=== PATIENT | female | born 1975 | race Caucasian/White ===

== ENCOUNTER 2022-04-20 08:50 | Day surgery (SDC) | payer MEDICAID ==
[~2022-04-20] VITALS: Ht 170.2 cm; Wt 228.2 kg
[~2022-04-20 08:50] MED LIST: ATOR20TA PO; CARV6.253 PO; CLOP75TA15 PO; ISOS10TA8 PO
[2022-04-20 09:01] VITALS: BP 144/81
[2022-04-20] MEDS ORDERED: ISOS30TA10 PO (09:09)
[2022-04-20] MEDS ORDERED: CLOP75TA33 PO (09:10)
[2022-04-20] MEDS ORDERED: CARV6.253 PO (09:10)
[2022-04-20] MEDS ORDERED: ASPI-611 PO (09:11)
[2022-04-20] MEDS ORDERED: MIDAZolam 1 MG/ML 5ML VIAL ONE (10:27)
[2022-04-20] MEDS ORDERED: FENTANYL CITRATE/PF 50 MCG/1 ML VIAL ONE (10:27)
[2022-04-20] MEDS ORDERED: diphenhydrAMINE 50 mg/ml inj ONE (10:27)
[2022-04-20] MEDS ORDERED: LIDOcaine Viscous 15ml cup ONE (10:28)
[2022-04-20 11:05] VITALS: BP 143/78
[2022-04-20 11:15] VITALS: BP 127/79
[2022-04-20 11:25] VITALS: BP 131/78
[2022-04-20 11:35] VITALS: BP 143/78
== END 2022-04-20 11:45 | disposition home or self-care (01) ==
LOC: GI LAB 08:50
PROVIDERS: ATTEND Internal Medicine Gastroenterology
DX: R19.5 Other fecal abnormalities (principal); K21.00 Gastro-esophageal reflux disease with esophagitis, without bleeding; K31.7 Polyp of stomach and duodenum; K29.70 Gastritis, unspecified, without bleeding; K22.10 Ulcer of esophagus without bleeding
CPT/HCPCS: 43239; 45378; 99152; J2250; J3010; J7030; Z7512; 99153; A4620; J1200

== ENCOUNTER 2022-11-11 10:48 | Outpatient (CLI) | payer MEDICAID ==
[~2022-11-11 10:48] MED LIST changes: +ASPI-611 PO; -ATOR20TA PO; -CLOP75TA15 PO; +CLOP75TA33 PO; -ISOS10TA8 PO; +ISOS30TA10 PO
== END 2022-11-11 23:59 | disposition home or self-care (01) ==
LOC: RAD 10:48
PROVIDERS: ATTEND Registered Nurse Medical-Surgical
DX: S80.12XD Contusion of left lower leg, subsequent encounter (principal); K42.9 Umbilical hernia without obstruction or gangrene; X58.XXXD Exposure to other specified factors, subsequent encounter
CPT/HCPCS: 76882; 93971

== ENCOUNTER 2023-10-07 20:08 | Inpatient (IN) | payer MEDICAID ==
[~2023-10-07] VITALS: Ht 170.2 cm; Wt 236.4 kg
[2023-10-07 20:53] LABS: BASOPHILS # (AUTO) 0.1 X10'3 (0-0.2); BASOPHILS % (AUTO) 0.5 % (0-1); EOSINOPHILS # (AUTO) 0.1 X10'3 (0-0.9); EOSINOPHILS % (AUTO) 1.3 % (0-6); HEMATOCRIT 44.5 % (35.0-45.0); HEMOGLOBIN 14.9 g/dl (12.0-16.0); LYMPHOCYTES % (AUTO) 27.4 % (21-51); MEAN CORPUSCULAR HEMOGLOBIN 29.7 PG (27.0-31.0); MEAN CORPUSCULAR HGB CONC 33.5 g/dL (33.0-36.5); MEAN CORPUSCULAR VOLUME 88.6 FL (78-98); MEAN PLATELET VOLUME 8.2 FL (7.4-10.4); MONOCYTES # (AUTO) 0.6 X10'3 (0-0.9); MONOCYTES % (AUTO) 5.6 % (2-12); NEUTROPHILS # (AUTO) 7.2 X10'3 (1.8-7.7); NEUTROPHILS % (AUTO) 65.2 % (42-75); PLATELET COUNT 303 X10'3 (140-440); RED BLOOD COUNT 5.03 X10'6 (4.20-5.60); RED CELL DISTRIBUTION WIDTH 14.6 % (11.5-14.5)
[2023-10-07 20:54] LABS: ALANINE AMINOTRANSFERASE 20 U/L (12-78); ALBUMIN 3.6 G/DL (3.4-5.0); ALKALINE PHOSPHATASE 44 IU/L (46-116); ANION GAP 10 (8-16); ASPARTATE AMINO TRANSFERASE 11 U/L (10-37); BILIRUBIN,TOTAL 0.5 MG/DL (0.1-1.0); BLOOD UREA NITROGEN 16 MG/DL (7-18); BUN/CREATININE RATIO 22.9 (10.0-20.0); CALCIUM 8.9 MG/DL (8.5-10.1); CHLORIDE 104 MMOL/L (99-107); GLUCOSE 109 MG/DL (70-104); LIPASE 32 U/L (16-77); POTASSIUM 3.9 MMOL/L (3.5-5.1); SODIUM 135 MMOL/L (135-145); TOTAL CARBON DIOXIDE 20.8 MMOL/L (24-32); TOTAL PROTEIN 7.1 G/DL (6.4-8.2); eCRCL 95 ML/MIN; eGFR 89 ML/MIN
[2023-10-07] MEDS ORDERED: iohexol 350MG/ML 100ml bottle IV ONE (21:25)
[2023-10-07 22:02] LABS: PROTHROMBIN TIME 10.9 SECONDS (9.0-12.0)
[2023-10-07] MEDS: ondansetron/PF 4mg/2ml inj IV ONE (22:08)
[2023-10-07] MEDS: pantoprazole 40 MG vial IV ONE (22:08)
[2023-10-07] MEDS: normal saline 1000ML IV soln IVB ONE (22:09)
[2023-10-07] MEDS: fentaNYL/PF 50MCG/1 ML 2ML syringe IV ONE (22:09)
[2023-10-07 22:10] LABS: MAGNESIUM 1.8 MG/DL (1.5-2.4)
[2023-10-07] MEDS ORDERED: ondansetron 4mg rapidly disintigrating tab PO PRN (23:35)
[2023-10-07] MEDS ORDERED: potassium Cl 20 mEq SR tablet PO PRN ×2 (23:35)
[2023-10-07] MEDS ORDERED: magnesium Cl slow-release 64mg tablet PO PRN (23:35)
[2023-10-07] MEDS ORDERED: potassium Cl 40MEQ/1/2NS 520ml 520 ML IV PRN (23:35)
[2023-10-07] MEDS ORDERED: magnesium 2GM in 50ml NS 50 ML IV PRN (23:35)
[2023-10-07] MEDS ORDERED: acetaminophen 325mg tablet PO PRN (23:35)
[2023-10-07] MEDS ORDERED: magnesium 4gm in 100ml NS 100 ML IV PRN (23:35)
[2023-10-07] MEDS: LIDOcaine 2% Viscous 15ml cup MM ONE (23:49)
[2023-10-08] MEDS: normal saline 1000ml 1,000 ML IV SCH (00:09)
[2023-10-08] MEDS: morphine 2 MG/ML inj. syringe IV PRN ×2 (00:25→08:12)
[2023-10-08 00:31] LABS: BILIRUBIN,URINE NEGATIVE (Neg); CLARITY,URINE CLOUDY (Clear); COLOR,URINE STRAW (Yellow); GLUCOSE, URINE NEGATIVE (Neg); KETONES,URINE NEGATIVE (Neg); LEUKOCYTE ESTERASE ,URINE SMALL (Neg); NITRITES, URINE POSITIVE (Neg); OCCULT BLOOD,URINE NEGATIVE (Neg); PH,URINE 5.5 (4.8-8.0); PROTEIN,URINE NEGATIVE (Neg); UROBILINOGEN,URINE 0.2 E.U/dL (0.2-1.0)
[2023-10-08 00:32] LABS: URINE HCG NEGATIVE (NEG)
[2023-10-08 00:38] LABS: UA COLLECTION TYPE CLN CATCH MIDSTREAM
[2023-10-08 00:40] LABS: SQUAMOUS EPITHELIAL CELL,UR MANY /LPF (FEW)
[2023-10-08 00:42] LABS: BACTERIA,URINE 4+ /HPF (Neg); RBC,URINE 0-2 /HPF (0-2); WBC,URINE 50-100 /HPF (0-4)
[2023-10-08] MEDS: CefTRIAXone/D5W-Rocephin 1gm 50 ML IV SCH (02:17)
[2023-10-08 04:00] LABS: BASOPHILS # (AUTO) 0.1 X10'3 (0-0.2); BASOPHILS % (AUTO) 0.6 % (0-1); EOSINOPHILS # (AUTO) 0.1 X10'3 (0-0.9); EOSINOPHILS % (AUTO) 1.4 % (0-6); HEMATOCRIT 43.5 % (35.0-45.0); HEMOGLOBIN 14.5 g/dl (12.0-16.0); LYMPHOCYTES # (AUTO) 2.9 X10'3 (1.1-4.8); LYMPHOCYTES % (AUTO) 28.5 % (21-51); MEAN CORPUSCULAR HEMOGLOBIN 29.5 PG (27.0-31.0); MEAN CORPUSCULAR HGB CONC 33.2 g/dL (33.0-36.5); MEAN CORPUSCULAR VOLUME 88.8 FL (78-98); MEAN PLATELET VOLUME 8.1 FL (7.4-10.4); MONOCYTES # (AUTO) 0.7 X10'3 (0-0.9); MONOCYTES % (AUTO) 6.4 % (2-12); NEUTROPHILS # (AUTO) 6.5 X10'3 (1.8-7.7); NEUTROPHILS % (AUTO) 63.1 % (42-75); PLATELET COUNT 281 X10'3 (140-440); RED CELL DISTRIBUTION WIDTH 14.6 % (11.5-14.5); WHITE BLOOD COUNT 10.3 X10'3 (4.5-11.0)
[2023-10-08 04:08] LABS: ALBUMIN 3.5 G/DL (3.4-5.0); ANION GAP 8 (8-16); BLOOD UREA NITROGEN 13 MG/DL (7-18); BUN/CREATININE RATIO 18.8 (10.0-20.0); CALCIUM 8.9 MG/DL (8.5-10.1); CHLORIDE 103 MMOL/L (99-107); CREATININE 0.69 MG/DL (0.40-0.90); GLUCOSE 105 MG/DL (70-104); POTASSIUM 3.9 MMOL/L (3.5-5.1); SODIUM 135 MMOL/L (135-145); eCRCL 96 ML/MIN; eGFR 90 ML/MIN
[2023-10-08] MEDS ORDERED: MEDR5TAB4 PO (07:05)
[2023-10-08] MEDS ORDERED: METF-1203 PO (07:05)
[2023-10-08 07:36] VITALS: BP 151/78; PULSE 78; RESP 17; TEMP 96.9; O2SAT 93
[2023-10-08] MEDS: K and/or MAG REPLACEMENT MC SCH (08:00)
[2023-10-08] MEDS: enoxaparin 40mg/0.4ml syringe SUBCUT SCH (08:14)
[2023-10-08] MEDS: metroNIDAZOLE-Flagyl 500mg/NS 100 ML IV SCH (08:15)
[2023-10-08 10:00] VITALS: BP 151/80; PULSE 82; RESP 20; TEMP 97.1; O2SAT 93
[2023-10-08] MEDS: ondansetron/PF 4mg/2ml inj IV PRN (12:09)
[2023-10-08 18:00] VITALS: BP 164/84; PULSE 81; RESP 20; TEMP 98.4; O2SAT 94
[2023-10-08 20:00] VITALS: RESP 20; O2SAT 94
[2023-10-08 22:00] VITALS: BP 141/69; PULSE 89; RESP 15; TEMP 96.8; O2SAT 92
[2023-10-09] VITALS (25 sets, daily range): BP systolic 128–165; BP diastolic 69–102; PULSE 76–95; RESP 13–21; TEMP 96.8–97.9; O2SAT 93–98
[2023-10-09 07:13] LABS: BASOPHILS % (AUTO) 0.3 % (0-1); EOSINOPHILS # (AUTO) 0.1 X10'3 (0-0.9); EOSINOPHILS % (AUTO) 0.9 % (0-6); HEMATOCRIT 42.1 % (35.0-45.0); HEMOGLOBIN 14.1 g/dl (12.0-16.0); LYMPHOCYTES # (AUTO) 2.1 X10'3 (1.1-4.8); LYMPHOCYTES % (AUTO) 20.1 % (21-51); MEAN CORPUSCULAR HEMOGLOBIN 29.8 PG (27.0-31.0); MEAN CORPUSCULAR HGB CONC 33.5 g/dL (33.0-36.5); MEAN CORPUSCULAR VOLUME 88.9 FL (78-98); MEAN PLATELET VOLUME 8.1 FL (7.4-10.4); MONOCYTES # (AUTO) 0.8 X10'3 (0-0.9); MONOCYTES % (AUTO) 7.8 % (2-12); NEUTROPHILS # (AUTO) 7.4 X10'3 (1.8-7.7); NEUTROPHILS % (AUTO) 70.9 % (42-75); PLATELET COUNT 269 X10'3 (140-440); RED BLOOD COUNT 4.74 X10'6 (4.20-5.60); RED CELL DISTRIBUTION WIDTH 14.5 % (11.5-14.5); WHITE BLOOD COUNT 10.4 X10'3 (4.5-11.0)
[2023-10-09 07:15] LABS: ALBUMIN 3.1 G/DL (3.4-5.0); ANION GAP 8 (8-16); BLOOD UREA NITROGEN 7 MG/DL (7-18); BUN/CREATININE RATIO 10.6 (10.0-20.0); CALCIUM 8.5 MG/DL (8.5-10.1); CHLORIDE 106 MMOL/L (99-107); CREATININE 0.66 MG/DL (0.40-0.90); GLUCOSE 109 MG/DL (70-104); POTASSIUM 3.9 MMOL/L (3.5-5.1); SODIUM 140 MMOL/L (135-145); TOTAL CARBON DIOXIDE 26.3 MMOL/L (24-32); eCRCL 100 ML/MIN; eGFR > 90 ML/MIN
[2023-10-09] MEDS: LIDOcaine 1% (10mg/ml)w/preservative inj. 20ml MDV ONE (07:16)
[2023-10-09] MEDS: BUPIVAcaine 2.5mg/ml inj 50ml vial (contains preservative) ONE (07:17)
[2023-10-09] MEDS ORDERED: sevoflurane 250ml liquid IH ONE (08:14)
[2023-10-09] MEDS ORDERED: midazolam 1 mg/ML 2ml injection ONE (08:22)
[2023-10-09] MEDS ORDERED: succinylcholine 20mg/ml inj IV ONE (08:22)
[2023-10-09] MEDS ORDERED: propofol inj 20 ML IV ONE (08:22)
[2023-10-09] MEDS ORDERED: fentaNYL/PF 50MCG/1 ML 2ML syringe ONE (08:22)
[2023-10-09] MEDS ORDERED: rocuronium 10mg/ml inj IV ONE (08:22)
[2023-10-09] MEDS: BUPIVAcaine 2.5mg/ml inj 50ml vial (contains preservative) SQ ONE (09:01)
[2023-10-09] MEDS ORDERED: ondansetron/PF 4mg/2ml inj ONE (10:16)
[2023-10-09] MEDS ORDERED: dexamethasone sod phosphate 4mg/ml inj. ONE (10:16)
[2023-10-09] MEDS ORDERED: neostigmine methylsulfate 1 MG/ML 10ml vial ONE (10:17)
[2023-10-09] MEDS ORDERED: acetaminophen 1,000mg/100ml IV 100 ML IV ONE (10:19)
[2023-10-09] MEDS ORDERED: glycopyrrolate 0.2mg/ml inj ONE (10:19)
[2023-10-09] MEDS ORDERED: sugammadex 200mg/2ml injection IV ONE (10:33)
[2023-10-09] MEDS ORDERED: meperidine/PF 25mg/ml syringe IV PRN ×2 (10:50)
[2023-10-09] MEDS ORDERED: morphine 2 MG/ML inj. syringe IV PRN (10:50)
[2023-10-09] MEDS ORDERED: ondansetron/PF 4mg/2ml inj IV PRN (10:50)
[2023-10-09] MEDS ORDERED: proCHLORperazine 10 MG/2 ml inj IV PRN (10:50)
[2023-10-09] MEDS: ringers solution, lacted 1,000 ML IV SCH (10:50)
[2023-10-09] MEDS ORDERED: morphine 4 MG/ML inj SYRINge IV PRN (10:50)
[2023-10-09] MEDS ORDERED: morphine/NS 1 mg/ml 50ml CADD 50 ML IV SCH (11:20)
[2023-10-09] MEDS ORDERED: naloxone 0.4 mg/ml inj IV PRN (11:20)
[2023-10-09] MEDS ORDERED: morphine/NS PCA 1mg/ml 50ml 50 ML IV SCH ×2 (11:32→12:05)
[2023-10-09] MEDS: meperidine/PF 25mg/ml syringe IV PRN (11:34)
[2023-10-09] MEDS: morphine/NS PCA 1mg/ml 50ml 50 ML IV SCH (12:32)
[2023-10-09] MEDS: heparin, porcine 5000 units/ml vial SQ SCH (19:42)
[2023-10-10] VITALS (7 sets, daily range): BP systolic 4–149; BP diastolic 65–73; PULSE 79–87; RESP 16–20; TEMP 97.2–99.9; O2SAT 95
[2023-10-10 06:42] LABS: BASOPHILS % (AUTO) 0.3 % (0-1); EOSINOPHILS % (AUTO) 0 % (0-6); HEMATOCRIT 40.5 % (35.0-45.0); HEMOGLOBIN 13.5 g/dl (12.0-16.0); LYMPHOCYTES # (AUTO) 1.3 X10'3 (1.1-4.8); LYMPHOCYTES % (AUTO) 11.6 % (21-51); MEAN CORPUSCULAR HEMOGLOBIN 29.6 PG (27.0-31.0); MEAN CORPUSCULAR HGB CONC 33.3 g/dL (33.0-36.5); MEAN CORPUSCULAR VOLUME 89.1 FL (78-98); MEAN PLATELET VOLUME 8.1 FL (7.4-10.4); MONOCYTES % (AUTO) 8.7 % (2-12); NEUTROPHILS # (AUTO) 8.8 X10'3 (1.8-7.7); NEUTROPHILS % (AUTO) 79.4 % (42-75); PLATELET COUNT 254 X10'3 (140-440); RED BLOOD COUNT 4.55 X10'6 (4.20-5.60); RED CELL DISTRIBUTION WIDTH 14.2 % (11.5-14.5); WHITE BLOOD COUNT 11.1 X10'3 (4.5-11.0)
[2023-10-10 06:43] LABS: ALBUMIN 2.7 G/DL (3.4-5.0); ANION GAP 8 (8-16); BLOOD UREA NITROGEN 7 MG/DL (7-18); BUN/CREATININE RATIO 11.7 (10.0-20.0); CALCIUM 8.1 MG/DL (8.5-10.1); CHLORIDE 107 MMOL/L (99-107); GLUCOSE 122 MG/DL (70-104); POTASSIUM 3.9 MMOL/L (3.5-5.1); SODIUM 140 MMOL/L (135-145); TOTAL CARBON DIOXIDE 24.9 MMOL/L (24-32); eCRCL 110 ML/MIN; eGFR > 90 ML/MIN
[2023-10-10] MEDS: mag hydrox/Alum hydrox/simeth 30ml oral suspension PO PRN (08:19)
[2023-10-10] MEDS: CADD PCA waste documentation MC SCH (12:28)
[2023-10-10] MEDS: HYDROcodone/acetaminophen 10/325mg tab PO PRN (15:02)
[2023-10-10] MEDS: clopidogrel 75mg tablet PO ONE (15:56)
[2023-10-10] MEDS: carvedilol 6.25mg tablet PO SCH (21:27)
[2023-10-11 06:00] VITALS: BP 120/72; PULSE 85; RESP 22; TEMP 96.2; O2SAT 96
[2023-10-11] MEDS: magnesium hydroxide 30ml (MOM) UD suspension PO PRN ×2 (07:02→22:38)
[2023-10-11 08:13] LABS: BASOPHILS # (AUTO) 0.1 X10'3 (0-0.2); BASOPHILS % (AUTO) 0.6 % (0-1); EOSINOPHILS # (AUTO) 0.1 X10'3 (0-0.9); EOSINOPHILS % (AUTO) 0.9 % (0-6); HEMATOCRIT 41.5 % (35.0-45.0); HEMOGLOBIN 13.7 g/dl (12.0-16.0); LYMPHOCYTES # (AUTO) 1.9 X10'3 (1.1-4.8); MEAN CORPUSCULAR HEMOGLOBIN 29.3 PG (27.0-31.0); MEAN CORPUSCULAR VOLUME 88.9 FL (78-98); NEUTROPHILS # (AUTO) 8.9 X10'3 (1.8-7.7); NEUTROPHILS % (AUTO) 74.5 % (42-75); PLATELET COUNT 258 X10'3 (140-440); RED BLOOD COUNT 4.67 X10'6 (4.20-5.60); RED CELL DISTRIBUTION WIDTH 14.6 % (11.5-14.5); WHITE BLOOD COUNT 11.9 X10'3 (4.5-11.0)
[2023-10-11 08:40] VITALS: RESP 18
[2023-10-11 08:48] LABS: ALBUMIN 2.8 G/DL (3.4-5.0); ANION GAP 9 (8-16); BLOOD UREA NITROGEN 10 MG/DL (7-18); BUN/CREATININE RATIO 14.3 (10.0-20.0); CALCIUM 8.3 MG/DL (8.5-10.1); CHLORIDE 104 MMOL/L (99-107); GLUCOSE 104 MG/DL (70-104); POTASSIUM 3.5 MMOL/L (3.5-5.1); SODIUM 137 MMOL/L (135-145); TOTAL CARBON DIOXIDE 24.4 MMOL/L (24-32); eCRCL 95 ML/MIN; eGFR 89 ML/MIN
[2023-10-11] MEDS: clopidogrel 75mg tablet PO SCH (08:56)
[2023-10-11 10:00] VITALS: BP 144/70; PULSE 86; RESP 18; TEMP 97.7; O2SAT 92
[2023-10-11 18:00] VITALS: BP 128/78; PULSE 91; RESP 16; TEMP 97.4; O2SAT 94
[2023-10-11 22:00] VITALS: BP 149/80; PULSE 98; RESP 22; TEMP 97.9; O2SAT 93
[2023-10-11 23:50] VITALS: PULSE 85; RESP 18; O2SAT 94
[2023-10-12] MEDS: HYDROcodone/acetaminophen 5mg/325mg tablet PO PRN (02:52)
[2023-10-12 06:30] VITALS: BP 155/91; PULSE 81; RESP 18; TEMP 96.6; O2SAT 95
[2023-10-12 07:58] LABS: BASOPHILS # (AUTO) 0.1 X10'3 (0-0.2); BASOPHILS % (AUTO) 0.5 % (0-1); EOSINOPHILS # (AUTO) 0.3 X10'3 (0-0.9); EOSINOPHILS % (AUTO) 2.9 % (0-6); HEMATOCRIT 39.8 % (35.0-45.0); HEMOGLOBIN 13.2 g/dl (12.0-16.0); LYMPHOCYTES # (AUTO) 2.3 X10'3 (1.1-4.8); LYMPHOCYTES % (AUTO) 21.6 % (21-51); MEAN CORPUSCULAR HEMOGLOBIN 29.4 PG (27.0-31.0); MEAN CORPUSCULAR HGB CONC 33.1 g/dL (33.0-36.5); MEAN CORPUSCULAR VOLUME 88.6 FL (78-98); MEAN PLATELET VOLUME 8.2 FL (7.4-10.4); MONOCYTES # (AUTO) 0.8 X10'3 (0-0.9); PLATELET COUNT 276 X10'3 (140-440); RED BLOOD COUNT 4.49 X10'6 (4.20-5.60); RED CELL DISTRIBUTION WIDTH 14.2 % (11.5-14.5); WHITE BLOOD COUNT 10.5 X10'3 (4.5-11.0)
[2023-10-12 08:00] VITALS: RESP 18; O2SAT 95
[2023-10-12 08:19] LABS: ALBUMIN 2.6 G/DL (3.4-5.0); ANION GAP 11 (8-16); BLOOD UREA NITROGEN 9 MG/DL (7-18); BUN/CREATININE RATIO 13.4 (10.0-20.0); CALCIUM 8.2 MG/DL (8.5-10.1); CHLORIDE 101 MMOL/L (99-107); CREATININE 0.67 MG/DL (0.40-0.90); GLUCOSE 101 MG/DL (70-104); POTASSIUM 3.5 MMOL/L (3.5-5.1); SODIUM 135 MMOL/L (135-145); TOTAL CARBON DIOXIDE 23.5 MMOL/L (24-32); eCRCL 99 ML/MIN; eGFR > 90 ML/MIN
[2023-10-12 10:30] VITALS: BP 134/71; PULSE 90; RESP 18; TEMP 97.9; O2SAT 96
[2023-10-12] MEDS ORDERED: CHOL100053 PO (15:46)
[2023-10-12 18:00] VITALS: BP 136/67; PULSE 87; RESP 18; TEMP 97.9; O2SAT 100
[2023-10-12 22:00] VITALS: BP 131/77; PULSE 88; RESP 19; TEMP 97.1; O2SAT 95
[2023-10-13 08:00] VITALS: RESP 16; O2SAT 96
[2023-10-13 08:36] VITALS: PULSE 90; RESP 16; O2SAT 95
== END 2023-10-13 11:26 | disposition home or self-care (01) | DRG 227 ==
LOC: ER 20:09 → ED HOLD 23:38 → ORTHO 4S 10-08 07:42
PROVIDERS: ADMIT Internal Medicine Critical Care Medicine; ATTEND Internal Medicine
PROC: BW211ZZ Computerized Tomography (CT Scan) of Abdomen and Pelvis using Low Osmolar Contrast (ICD-10-PCS; principal; 2023-10-07)
PROC: 0WQF4ZZ Repair Abdominal Wall, Percutaneous Endoscopic Approach (ICD-10-PCS; 2023-10-09)
PROC: 0DN84ZZ Release Small Intestine, Percutaneous Endoscopic Approach (ICD-10-PCS; 2023-10-09)
PROC: 8E0W4CZ Robotic Assisted Procedure of Trunk Region, Percutaneous Endoscopic Approach (ICD-10-PCS; 2023-10-09)
DX: K43.0 Incisional hernia with obstruction, without gangrene (principal); Z68.45 Body mass index [BMI] 70 or greater, adult; K42.0 Umbilical hernia with obstruction, without gangrene; G47.33 Obstructive sleep apnea (adult) (pediatric); N39.0 Urinary tract infection, site not specified; K76.0 Fatty (change of) liver, not elsewhere classified; D25.9 Leiomyoma of uterus, unspecified; E11.9 Type 2 diabetes mellitus without complications; E66.01 Morbid (severe) obesity due to excess calories; I10 Essential (primary) hypertension; I25.10 Atherosclerotic heart disease of native coronary artery without angina pectoris; Z90.49 Acquired absence of other specified parts of digestive tract; Z79.899 Other long term (current) drug therapy; Z87.891 Personal history of nicotine dependence
CPT/HCPCS: 36415; 74177; 80048; 80053; 81001; 81003; 81025; 82948; 83605; 83690; 83735; 84484; 85025; 85610; 87040; 87081; 93005; 94760; 96374; 96375; 99285; A4215; A4615; A4618; A6402; C9113; G0378; J0131; J0330; J0696; J1100; J1644; J1650; J2175; J2250; J2270; J2405; J2704; J2710; J3010; J3490; J7030; Q9967